=== PATIENT | female | born 1970 | race Caucasian/White ===

== ENCOUNTER → 2016-07-04 | Outpatient (CLI) | payer OTHER | LOC: RT 13:10 | DX: J06.9 Acute upper respiratory infection, unspecified (principal); F17.211 Nicotine dependence, cigarettes, in remission; R06.02 Shortness of breath | CPT/HCPCS: 94010; 94729 ==

== ENCOUNTER → 2016-08-08 | Outpatient (CLI) | payer OTHER | LOC: RAD 17:54 | DX: R05 Cough (principal) | CPT/HCPCS: 71020 ==

== ENCOUNTER → 2020-07-26 | Outpatient (CLI) | payer MEDICARE, OTHER ==
[~2020-07-26] MED LIST: ANAPROX DS550 MG PO; CYCLOBENZAPRINE5 MG PO; FENOFIBRATE PO; FLEXERIL 10 MG10 MG PO; IBUPROFEN600 MG PO; IBUPROFEN800 MG PO; Voltaren Gel 1 % TOP
== END ==
LOC: KOH-I 12:29
DX: R05 Cough (principal)
CPT/HCPCS: 71046

== ENCOUNTER 2020-08-09 09:41 | Emergency (ER) | payer MEDICARE, OTHER ==
[~2020-08-09 09:41] MED LIST changes: -CYCLOBENZAPRINE5 MG PO; -IBUPROFEN800 MG PO
[2020-08-09] MEDS ORDERED: CYCLOBENZAPRINE5 MG PO (11:55)
[2020-08-09] MEDS ORDERED: IBUPROFEN800 MG PO (11:55)
== END 2020-08-09 12:10 | disposition home or self-care (01) ==
LOC: ER1 09:41
DX: S93.401A Sprain of unspecified ligament of right ankle, initial encounter (principal); S83.91XA Sprain of unspecified site of right knee, initial encounter; F17.210 Nicotine dependence, cigarettes, uncomplicated; Z88.0 Allergy status to penicillin; X50.1XXA Overexertion from prolonged static or awkward postures, initial encounter; Y92.009 Unspecified place in unspecified non-institutional (private) residence as the place of occurrence of the external cause
CPT/HCPCS: 73562; 73590; 73600; 96372; 99283; J1885

== ENCOUNTER → 2021-02-13 | Outpatient (CLI) | payer MEDICARE, OTHER ==
[~2021-02-13] MED LIST changes: +CYCLOBENZAPRINE5 MG PO; +IBUPROFEN800 MG PO
== END ==
LOC: KOH-I 10:30
DX: J32.9 Chronic sinusitis, unspecified (principal); J34.89 Other specified disorders of nose and nasal sinuses
CPT/HCPCS: 70486

== ENCOUNTER → 2021-06-20 | Outpatient (CLI) | payer MEDICARE, OTHER | LOC: HEART 5 14:38 | DX: R00.2 Palpitations (principal) ==

== ENCOUNTER → 2021-07-31 | Outpatient (CLI) | payer MEDICARE, OTHER | LOC: KOH-I 09:41 | DX: R10.84 Generalized abdominal pain (principal); R14.0 Abdominal distension (gaseous) | CPT/HCPCS: 74018 ==

== ENCOUNTER → 2021-09-14 | Outpatient (CLI) | payer MEDICARE, OTHER | LOC: KOH-I 14:34 | DX: M79.671 Pain in right foot (principal) | CPT/HCPCS: 73630 ==

== ENCOUNTER 2021-09-15 16:19 | Emergency (ER) | payer MEDICARE, OTHER ==
[2021-09-15] MEDS ORDERED: IBUPROFEN600 MG PO (17:34)
== END 2021-09-15 17:38 | disposition home or self-care (01) ==
LOC: ER1 16:19
DX: M79.671 Pain in right foot (principal); Z88.0 Allergy status to penicillin
CPT/HCPCS: 73620; 99283

== ENCOUNTER 2021-10-31 05:25 | Emergency (ER) | payer MEDICARE, OTHER | END 2021-10-31 09:30 | disposition home or self-care (01) | LOC: ER1 05:25 | DX: Z46.89 Encounter for fitting and adjustment of other specified devices (principal); M79.671 Pain in right foot; F17.200 Nicotine dependence, unspecified, uncomplicated; Z88.0 Allergy status to penicillin; Z90.710 Acquired absence of both cervix and uterus; Z91.040 Latex allergy status | CPT/HCPCS: 99283 ==